=== PATIENT | male | born 1970 | race Caucasian/White ===

== ENCOUNTER 2020-03-26 06:36 | Emergency (ER) | payer MEDICAID, OTHER ==
[~2020-03-26] VITALS: Ht 167.6 cm; Wt 72.6 kg
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
--- NOTE | 2020-03-26 06:51 | NUR ---
AT THE BED SIDE
[2020-03-26 07:04] VITALS: BP 127/75
--- NOTE | 2020-03-26 07:04 | NUR ---
Patient discharged to home in stable condition. Rx and Written and verbal after care instructions given. Patient verbalizes understanding of instruction.
== END 2020-03-26 07:05 | disposition home or self-care (01) ==
LOC: ER 06:39
DX: T70.0XXA Otitic barotrauma, initial encounter (principal); X58.XXXA Exposure to other specified factors, initial encounter